=== PATIENT | female | born 1955 | race Caucasian/White ===

== ENCOUNTER 2022-06-03 16:54 | Inpatient (IN) ==
[2022-06-03] MEDS ORDERED: Acetaminophen 325 MG TABLET PO PRN (19:51)
[2022-06-03] MEDS ORDERED: *HR* HYDROcodone/Acet 5/325 mg TABLET PO PRN (19:51)
[2022-06-03] MEDS ORDERED: Melatonin 3 MG TABLET PO PRN (19:51)
[2022-06-03] MEDS ORDERED: *HR* Promethazine 25 MG/ML VIAL IM PRN (19:51)
[2022-06-03] MEDS ORDERED: Naloxone 0.4 MG/ML INJ IVP PRN (19:51)
[2022-06-03] MEDS ORDERED: Ondansetron 4 MG/2 ML VIAL IVP PRN (19:51)
[2022-06-03] MEDS ORDERED: Ringers Solution, Lactated 1,000 ML IVC SCH (20:00)
[2022-06-03] MEDS ORDERED: *HR* LORazepam 0.5 MG TABLET PO PRN (20:00)
[2022-06-03] MEDS ORDERED: Azithromycin 500 MG in 0.9 % Sodium Chloride 250 ML IVPB SCH (21:00)
[2022-06-03] MEDS: 0.9 % Sodium Chloride 1,000 ML IVC SCH (22:37)
[2022-06-03] MEDS: QUEtiapine Fumarate 25 MG TABLET PO SCH (22:43)
[2022-06-03] MEDS: Piperacillin/Tazobactam 3.375 GM in 0.9 % Sodium Chloride Mini Bag 100 ML IVPB SCH (23:58)
[2022-06-04] MEDS ORDERED: Potassium Phosphate 44 MEQ in 0.9 % Sodium Chloride 250 ML IVPB ONE (01:15)
[2022-06-04] MEDS ORDERED: Ipratropium/Albuterol Neb 3 ML IH PRN (01:25)
[2022-06-04] MEDS: 0.9 % Sodium Chloride 1,000 ML IVC SCH ×2 (05:53→19:49)
[2022-06-04 06:33] LABS: Basophils % 0.1 %; Hematocrit 27.3 % (35.3-44.9); Hemoglobin 8.5 g/dL (11.5-15.4); Immature Granulocytes % 0.8 % (0-4); Lymphocytes # 1.6 K/mcL (0.6-4.6); Lymphocytes % 8.5 %; Mean Corpuscular HGB Conc 31.1 g/dL (31.6-35.5); Mean Corpuscular Hemoglobin 26.5 pg (28.0-33.3); Mean Platelet Volume 9.2 fL (9.4-12.4); Monocytes # 0.8 K/mcL (0.0-1.3); Monocytes % 4.1 %; Neutrophils # 16.4 K/mcL (1.6-8.9); Platelet Count 565 K/mcL (140-400); Red Blood Count 3.21 M/mcL (3.82-4.97); Red Cell Distribution Width 13.9 % (11.5-14.5); Segmented Neutrophils % 86.5 %
[2022-06-04 06:40] LABS: Prothrombin Time 11.4 Seconds (9.4-12.1)
[2022-06-04 06:46] LABS: % Iron Saturation 29 % (15-50); Iron 62 mcg/dL (50-170); Transferrin 154 mg/dL (203-362)
[2022-06-04 06:47] LABS: Albumin 2.8 g/dL (3.5-5.7); Albumin/Globulin Ratio 0.9 (1.1-2.2); Bilirubin,Total 0.2 mg/dL (0.3-1.0); Calcium 8.7 mg/dL (8.6-10.3); Globulin 3.2 g/dL (2.4-3.5); Magnesium 2.1 mg/dL (1.6-2.6); Phosphorous 4.8 mg/dL (2.7-4.5)
[2022-06-04 07:11] LABS: Folate 4.7 ng/mL (3.0-16.0)
[2022-06-04] MEDS: Budesonide/Formoterol 160/4.5 1 PUFF INH IH SCH ×2 (07:32→20:23)
[2022-06-04] MEDS: PARoxetine 10 MG TABLET PO SCH (09:55)
[2022-06-04] MEDS: Piperacillin/Tazobactam 3.375 GM in 0.9 % Sodium Chloride Mini Bag 100 ML IVPB SCH ×2 (09:56→19:49)
[2022-06-04] MEDS: Lurasidone 20 MG TABLET PO SCH (10:00)
[2022-06-04] MEDS ORDERED: GuaiFENesin Liq 200 MG/10 ML UDC PO PRN (12:13)
[2022-06-04] MEDS ORDERED: Albuterol 2.5 MG/3 ML NEBULIZER IH PRN (12:32)
[2022-06-04] MEDS ORDERED: Ondansetron 4 MG/2 ML VIAL IVP PRN (12:32)
[2022-06-04] MEDS ORDERED: *HR* FentaNYL (PF) 100 MCG/2 ML VIAL IVP PRN (12:32)
[2022-06-04] MEDS ORDERED: Tuberculin Skin Test (PPD) 5 UNIT/0.1 ML VIAL ID ONE (12:33)
[2022-06-04] MEDS ORDERED: *HR* Propofol 200 MG/20 ML VIAL IVP ONE (13:15)
[2022-06-04] MEDS ORDERED: *HR* Rocuronium Bromide 50 MG/5 ML VIAL ONE (13:16)
[2022-06-04] MEDS ORDERED: Lidocaine -MPF 2% 5 ML VIAL ONE (13:16)
[2022-06-04] MEDS ORDERED: *HR* Succinylcholine 200 MG/10 ML VIAL IVP ONE (13:16)
[2022-06-04] MEDS ORDERED: Ondansetron 4 MG/2 ML VIAL ONE (13:16)
[2022-06-04] MEDS: *HR* Heparin 5,000 UNIT/ML VIAL SQ SCH ×2 (14:00→19:49)
[2022-06-04] MEDS ORDERED: *HR* EPINEPHrine 1 MG/10 ML SYRINGE INTRATRACH PRN (15:24)
[2022-06-04] MEDS: QUEtiapine Fumarate 25 MG TABLET PO SCH (19:48)
[2022-06-05] MEDS ORDERED: Piperacillin/Tazobactam 3.375 GM VIAL ONE (00:46)
[2022-06-05] MEDS: Piperacillin/Tazobactam 3.375 GM in 0.9 % Sodium Chloride Mini Bag 100 ML IVPB SCH ×2 (01:08→10:02)
[2022-06-05 04:10] LABS: Basophils % 0.1 %; Hematocrit 23.2 % (35.3-44.9); Hemoglobin 7.4 g/dL (11.5-15.4); Immature Granulocytes % 1.4 % (0-4); Lymphocytes # 1.1 K/mcL (0.6-4.6); Lymphocytes % 11.1 %; Mean Corpuscular HGB Conc 31.9 g/dL (31.6-35.5); Mean Corpuscular Hemoglobin 27.4 pg (28.0-33.3); Mean Corpuscular Volume 85.9 fL (83.0-100.0); Mean Platelet Volume 9.1 fL (9.4-12.4); Monocytes # 0.4 K/mcL (0.0-1.3); Monocytes % 4.1 %; Neutrophils # 8.5 K/mcL (1.6-8.9); Platelet Count 502 K/mcL (140-400); Red Cell Distribution Width 14.4 % (11.5-14.5); Segmented Neutrophils % 83.3 %; White Blood Count 10.2 K/mcL (4.3-11.1)
[2022-06-05 04:32] LABS: Albumin 2.6 g/dL (3.5-5.7); Bilirubin,Total 0.2 mg/dL (0.3-1.0); Globulin 2.7 g/dL (2.4-3.5); Potassium 3.7 mEq/L (3.5-5.1); Total Protein 5.3 g/dL (6.4-8.9)
[2022-06-05] MEDS: 0.9 % Sodium Chloride 1,000 ML IVC SCH ×3 (04:49→18:43)
[2022-06-05] MEDS: *HR* Heparin 5,000 UNIT/ML VIAL SQ SCH ×3 (04:50→21:14)
[2022-06-05] MEDS: Lurasidone 20 MG TABLET PO SCH (09:45)
[2022-06-05] MEDS: PARoxetine 10 MG TABLET PO SCH (09:45)
[2022-06-05] MEDS: Budesonide/Formoterol 160/4.5 1 PUFF INH IH SCH ×2 (10:12→21:56)
[2022-06-05] MEDS ORDERED: Piperacillin/Tazobactam 3.375 GM in 0.9 % Sodium Chloride Mini Bag 100 ML IVPB SCH (14:00)
[2022-06-05] MEDS: *HR* LORazepam 1 MG TABLET PO SCH ×2 (16:56→21:15)
[2022-06-05] MEDS ORDERED: NON-FORMULARY MEDICATION 1 EACH EACH (Atorvastatin Calcium [Lipitor] 20 MG Tablet) PO SCH (21:00)
[2022-06-05] MEDS: QUEtiapine Fumarate 25 MG TABLET PO SCH (21:18)
[2022-06-06] MEDS: Piperacillin/Tazobactam 3.375 GM in 0.9 % Sodium Chloride Mini Bag 100 ML IVPB SCH ×2 (00:37→09:33)
[2022-06-06] MEDS: 0.9 % Sodium Chloride 1,000 ML IVC SCH ×2 (01:14→02:13)
[2022-06-06 04:29] VITALS: BP 127/56; PULSE 63; TEMP 98.2
[2022-06-06] MEDS: *HR* Heparin 5,000 UNIT/ML VIAL SQ SCH (05:38)
[2022-06-06] MEDS: *HR* LORazepam 1 MG TABLET PO SCH (09:32)
[2022-06-06] MEDS: Lurasidone 20 MG TABLET PO SCH (09:33)
[2022-06-06] MEDS: PARoxetine 10 MG TABLET PO SCH (09:40)
[2022-06-06] MEDS: Budesonide/Formoterol 160/4.5 1 PUFF INH IH SCH (09:54)
[2022-06-06 11:40] VITALS: O2SAT 100
[2022-06-07 23:20] LABS: A.galactomannan Ag Index 0.08
== END 2022-06-06 13:08 | disposition home or self-care (01) | DRG 177 ==
LOC: SUATTDRO 18:32 → 3NENU 18:32
PROVIDERS: ADMIT Internal Medicine; ATTEND Internal Medicine

== ENCOUNTER 2022-07-01 10:46 | Inpatient (IN) ==
[2022-07-01] MEDS ORDERED: Ondansetron ODT 4 MG TAB.RAPDIS SL PRN (18:04)
[2022-07-01] MEDS ORDERED: Acetaminophen 325 MG TABLET PO PRN (18:04)
[2022-07-01] MEDS ORDERED: Naloxone 0.4 MG/ML INJ IVP PRN (18:04)
[2022-07-01] MEDS: 0.9 % Sodium Chloride 1,000 ML IVC SCH (19:53)
[2022-07-02 06:26] LABS: Basophils % 0.1 %; Hematocrit 15.1 % (35.3-44.9); Mean Corpuscular Volume 83.9 fL (83.0-100.0); Nucleated Red Blood Cells 0.3 /100 WBC (0); Red Cell Distribution Width 15.2 % (11.5-14.5)
[2022-07-02 06:28] LABS: Eosinophils # 0.1 K/mcL (0.0-0.6); Eosinophils % 0.5 %; Immature Granulocytes % 1.3 % (0-4); Lymphocytes % 20.2 %; Mean Corpuscular HGB Conc 31.1 g/dL (31.6-35.5); Mean Corpuscular Hemoglobin 26.1 pg (28.0-33.3); Mean Platelet Volume 9.7 fL (9.4-12.4); Monocytes # 1.1 K/mcL (0.0-1.3); Monocytes % 7.6 %; Neutrophils # 10.4 K/mcL (1.6-8.9); Platelet Count 313 K/mcL (140-400); Segmented Neutrophils % 70.3 %; White Blood Count 14.8 K/mcL (4.3-11.1)
[2022-07-02 06:32] LABS: Hemoglobin 4.7 g/dL (11.5-15.4)
[2022-07-02 06:36] LABS: INR 1.2; Prothrombin Time 12.9 Seconds (9.4-12.1)
[2022-07-02 06:37] LABS: Activated Partial Thrombo Time 25.6 Seconds (26.0-36.0)
[2022-07-02 06:44] LABS: Calcium 9.2 mg/dL (8.6-10.3); Potassium 3.2 mEq/L (3.5-5.1)
[2022-07-02] MEDS ORDERED: 0.9 % Sodium Chloride 250 ML IVC SCH (07:00)
[2022-07-02 07:58] LABS: Hematocrit 14.6 % (35.3-44.9); Hemoglobin 4.7 g/dL (11.5-15.4)
[2022-07-02] MEDS ORDERED: 0.9 % Sodium Chloride 500 ML ONE ×2 (08:12→11:55)
[2022-07-02] MEDS ORDERED: Potassium Effervescent 25 MEQ TABLET.EFF PO ONE (09:24)
[2022-07-02] MEDS ORDERED: Morphine Sulfate 2 MG/ML SYRINGE IVP PRN (12:25)
[2022-07-02] MEDS: Ipratropium/Albuterol Neb 3 ML IH SCH ×3 (13:10→20:44)
[2022-07-02 15:24] LABS: Hematocrit 20.8 % (35.3-44.9)
[2022-07-02 15:25] LABS: Hemoglobin 6.9 g/dL (11.5-15.4)
[2022-07-02 15:44] LABS: % Iron Saturation 45 % (15-50); Iron 135 mcg/dL (50-170); Transferrin 216 mg/dL (203-362)
[2022-07-02 16:02] LABS: Ferritin 60 ng/mL (10-120)
[2022-07-02 16:03] LABS: Hematocrit 22.2 % (35.3-44.9); Hemoglobin 7.3 g/dL (11.5-15.4)
[2022-07-02 16:07] LABS: Folate 2.4 ng/mL (3.0-16.0)
[2022-07-02] MEDS ORDERED: *HR* FentaNYL (PF) 100 MCG/2 ML VIAL ONE ×3 (16:12→20:00)
[2022-07-02] MEDS ORDERED: *HR* Propofol 200 MG/20 ML VIAL IVP ONE (16:12)
[2022-07-02] MEDS ORDERED: Lidocaine -MPF 2% 2 ML VIAL ONE (16:12)
[2022-07-02] MEDS ORDERED: Mannitol 20% 0 GM/0 ML IV.SOLN IVC ONE (16:23)
[2022-07-02] MEDS ORDERED: Ipratropium/Albuterol Neb 3 ML IH ONE (16:38)
[2022-07-02] MEDS ORDERED: Acetylcysteine 10% 2 ML INHSOL IH ONE (16:40)
[2022-07-02 16:53] LABS: Basophils % 0.1 %; Eosinophils # 0.1 K/mcL (0.0-0.6); Eosinophils % 0.5 %; Immature Granulocytes % 1.5 % (0-4); Lymphocytes # 2.7 K/mcL (0.6-4.6); Lymphocytes % 18.7 %; Mean Corpuscular HGB Conc 32.4 g/dL (31.6-35.5); Mean Corpuscular Hemoglobin 27.5 pg (28.0-33.3); Mean Platelet Volume 9.9 fL (9.4-12.4); Monocytes # 1.2 K/mcL (0.0-1.3); Monocytes % 8.3 %; Neutrophils # 10.4 K/mcL (1.6-8.9); Nucleated Red Blood Cells 0.2 /100 WBC (0); Platelet Count 273 K/mcL (140-400); Red Blood Count 2.47 M/mcL (3.82-4.97); Red Cell Distribution Width 13.9 % (11.5-14.5); Segmented Neutrophils % 70.9 %; White Blood Count 14.6 K/mcL (4.3-11.1)
[2022-07-02] MEDS ORDERED: CeFAZolin Syr 2,000MG/20 ML 2,000 MG/20 ML SYRINGE IVPB ONE (17:00)
[2022-07-02] MEDS ORDERED: Albuterol 2.5 MG/3 ML NEBULIZER IH ONE (17:09)
[2022-07-02] MEDS ORDERED: Sugammadex Sodium 200 MG/2 ML VIAL IV ONE (19:34)
[2022-07-02] MEDS: carvediloL 6.25 MG TABLET PO SCH (22:26)
[2022-07-02] MEDS: 0.9 % Sodium Chloride 1,000 ML IVC SCH (22:27)
[2022-07-03] MEDS: Ipratropium/Albuterol Neb 3 ML IH SCH ×6 (00:19→19:12)
[2022-07-03] MEDS ORDERED: *HR* Labetalol 20 MG/4 ML SYRINGE IVP PRN (00:35)
[2022-07-03 01:49] LABS: Basophils % 0.1 %; Eosinophils % 0.3 %; Hematocrit 22.8 % (35.3-44.9); Hemoglobin 7.5 g/dL (11.5-15.4); Immature Granulocytes % 1.5 % (0-4); Lymphocytes % 14.3 %; Mean Corpuscular HGB Conc 32.9 g/dL (31.6-35.5); Mean Corpuscular Volume 85.1 fL (83.0-100.0); Mean Platelet Volume 9.9 fL (9.4-12.4); Monocytes # 1.1 K/mcL (0.0-1.3); Neutrophils # 10.5 K/mcL (1.6-8.9); Nucleated Red Blood Cells 0.2 /100 WBC (0); Platelet Count 231 K/mcL (140-400); Red Blood Count 2.68 M/mcL (3.82-4.97); Segmented Neutrophils % 75.8 %; White Blood Count 13.8 K/mcL (4.3-11.1)
[2022-07-03 02:09] LABS: INR 1.1; Prothrombin Time 12.3 Seconds (9.4-12.1)
[2022-07-03 02:19] LABS: Alanine Aminotransferase 21 Units/L (7-52); Albumin/Globulin Ratio 1.4 (1.1-2.2); Alkaline Phosphatase 225 Units/L (34-104); Aspartate Amino Transferase 80 Units/L (13-39); BUN/Creatinine Ratio 30 (6-26); Bilirubin,Total 0.3 mg/dL (0.3-1.0); Blood Urea Nitrogen 32 mg/dL (8-23); Calcium 8.9 mg/dL (8.6-10.3); Carbon Dioxide 29 mEq/L (23-29); Chloride 106 mEq/L (98-107); Chol/HDL Ratio 2.4 (0-4.9); Cholesterol 110 mg/dL (< 200); Globulin 2.2 g/dL (2.4-3.5); Glucose 99 mg/dL (70-105); HDL Cholesterol 46 mg/dL (40-59); LDL Cholesterol,Calculated 0 mg/dL (< 100); Osmolality,Calculated 299 (280-300); Potassium 4.1 mEq/L (3.5-5.1); Sodium 141 mEq/L (136-145); Total Protein 5.2 g/dL (6.4-8.9); Triglycerides 319 mg/dL (< 150); Troponin I < 0.03 ng/mL (< 0.04)
[2022-07-03 02:33] LABS: Estimated Average Glucose 97 mg/dl
[2022-07-03] MEDS: Folic Acid 1 MG TABLET PO SCH (07:53)
[2022-07-03] MEDS: carvediloL 6.25 MG TABLET PO SCH ×2 (07:53→16:53)
[2022-07-03] MEDS ORDERED: Bacitracin OINT PKT TP SCH (21:00)
[2022-07-04] MEDS: Ipratropium/Albuterol Neb 3 ML IH SCH ×4 (00:10→11:20)
[2022-07-04 05:24] LABS: VBG Ionized Calcium 1.22 mmol/L (1.15-1.35)
[2022-07-04 05:24] LABS: Basophils % 0.1 %; Eosinophils # 0.1 K/mcL (0.0-0.6); Eosinophils % 0.9 %; Hematocrit 22.4 % (35.3-44.9); Hemoglobin 7.2 g/dL (11.5-15.4); Immature Granulocytes % 1.1 % (0-4); Lymphocytes # 1.8 K/mcL (0.6-4.6); Lymphocytes % 12.8 %; Mean Corpuscular HGB Conc 32.1 g/dL (31.6-35.5); Mean Corpuscular Hemoglobin 27.6 pg (28.0-33.3); Mean Corpuscular Volume 85.8 fL (83.0-100.0); Mean Platelet Volume 9.9 fL (9.4-12.4); Monocytes % 7.4 %; Neutrophils # 10.9 K/mcL (1.6-8.9); Platelet Count 214 K/mcL (140-400); Red Blood Count 2.61 M/mcL (3.82-4.97); Red Cell Distribution Width 14.4 % (11.5-14.5); Segmented Neutrophils % 77.7 %
[2022-07-04 05:41] LABS: BUN/Creatinine Ratio 24 (6-26); Blood Urea Nitrogen 16 mg/dL (8-23); Calcium 8.7 mg/dL (8.6-10.3); Carbon Dioxide 31 mEq/L (23-29); Chloride 104 mEq/L (98-107); Glucose 102 mg/dL (70-105); Magnesium 1.8 mg/dL (1.6-2.6); Osmolality,Calculated 291 (280-300); Phosphorous 1.9 mg/dL (2.7-4.5); Potassium 3.3 mEq/L (3.5-5.1); Sodium 140 mEq/L (136-145)
[2022-07-04] MEDS: carvediloL 6.25 MG TABLET PO SCH (08:04)
[2022-07-04] MEDS: Folic Acid 1 MG TABLET PO SCH (08:04)
[2022-07-04 09:11] VITALS: O2SAT 95
[2022-07-04] MEDS ORDERED: Acetaminophen 325 MG TABLET PO PRN (15:01)
[2022-07-04] MEDS ORDERED: Naloxone 0.4 MG/ML INJ IVP PRN (15:01)
[2022-07-04 15:38] VITALS: BP 137/65; PULSE 85
[2022-07-04 15:39] VITALS: TEMP 98.7
[2022-07-04] MEDS ORDERED: Ipratropium/Albuterol Neb 3 ML IH SCH (16:00)
[2022-07-04] MEDS ORDERED: carvediloL 6.25 MG TABLET PO SCH (17:00)
[2022-07-04] MEDS ORDERED: NON-FORMULARY MEDICATION 1 EACH EACH (Atorvastatin Calcium [Lipitor] 20 MG Tablet) PO SCH (21:00)
[2022-07-05] MEDS ORDERED: PARoxetine 10 MG TABLET PO SCH (09:00)
[2022-07-05] MEDS ORDERED: amLODIPine 5 MG TABLET PO SCH (09:00)
[2022-07-05] MEDS ORDERED: Budesonide/Formoterol 80/4.5 1 PUFF INH IH SCH (10:00)
== END 2022-07-04 17:15 | disposition home health service (06) | DRG 25 ==
LOC: 4WAOSI → ICNU 07-02 16:36
PROVIDERS: ADMIT Student in an Organized Health Care Education/Training Program; ATTEND Student in an Organized Health Care Education/Training Program

== ENCOUNTER 2022-07-11 19:54 | Inpatient (IN) ==
[2022-07-11] MEDS ORDERED: 0.9 % Sodium Chloride 1,000 ML IVC ONE (21:07)
[2022-07-11] MEDS ORDERED: Iopamidol - 370 500 ML MLS IVP ONE (21:07)
[2022-07-11 21:24] LABS: Basophils % 0.1 %; Eosinophils % 0.1 %; Hematocrit 19.9 % (35.3-44.9); Hemoglobin 6.1 g/dL (11.5-15.4); Immature Granulocytes % 1.1 % (0-4); Lymphocytes # 2.8 K/mcL (0.6-4.6); Lymphocytes % 10.1 %; Mean Corpuscular HGB Conc 30.7 g/dL (31.6-35.5); Mean Corpuscular Hemoglobin 27.2 pg (28.0-33.3); Mean Corpuscular Volume 88.8 fL (83.0-100.0); Mean Platelet Volume 10.7 fL (9.4-12.4); Monocytes # 1.7 K/mcL (0.0-1.3); Monocytes % 6.1 %; Neutrophils # 22.9 K/mcL (1.6-8.9); Nucleated Red Blood Cells 0.1 /100 WBC (0); Platelet Count 439 K/mcL (140-400); Red Blood Count 2.24 M/mcL (3.82-4.97); Red Cell Distribution Width 14.8 % (11.5-14.5); Segmented Neutrophils % 82.5 %; White Blood Count 27.8 K/mcL (4.3-11.1)
[2022-07-11 21:30] LABS: INR 1.1; Prothrombin Time 12.8 Seconds (9.4-12.1)
[2022-07-11 21:32] LABS: Activated Partial Thrombo Time 28.5 Seconds (26.0-36.0)
[2022-07-11] MEDS ORDERED: cefTRIAXone 1,000 MG in 0.9 % Sodium Chloride 10 ML IVP ONE (21:32)
[2022-07-11 21:59] LABS: Alanine Aminotransferase 5 Units/L (7-52); Albumin 3.3 g/dL (3.5-5.7); Albumin/Globulin Ratio 1.1 (1.1-2.2); Alkaline Phosphatase 124 Units/L (34-104); Aspartate Amino Transferase 10 Units/L (13-39); BUN/Creatinine Ratio 18 (6-26); Bilirubin,Direct 0.1 mg/dL (0.0-0.2); Bilirubin,Indirect 0.3 mg/dL (0.0-1.0); Bilirubin,Total 0.4 mg/dL (0.3-1.0); Blood Urea Nitrogen 23 mg/dL (8-23); Calcium 10.9 mg/dL (8.6-10.3); Carbon Dioxide 29 mEq/L (23-29); Chloride 100 mEq/L (98-107); Ethanol < 10 mg/dL (Less than 10); Globulin 2.9 g/dL (2.4-3.5); Glucose 107 mg/dL (70-105); Osmolality,Calculated 292 (280-300); Potassium 3.1 mEq/L (3.5-5.1); Sodium 139 mEq/L (136-145); Total Protein 6.2 g/dL (6.4-8.9); Troponin I 0.06 ng/mL (< 0.04)
[2022-07-11] MEDS ORDERED: 0.9 % Sodium Chloride 1,000 ML ONE (22:42)
[2022-07-11 23:32] LABS: Adenovirus Not Detected (Not Detect); Bordetella Pertussis Not Detected (Not Detect); Chlamydophila pneumoniae Not Detected (Not Detect); Coronavirus 229E Not Detected (Not Detect); Coronavirus HKU1 Not Detected (Not Detect); Coronavirus NL63 Not Detected (Not Detect); Coronavirus OC43 Not Detected (Not Detect); Human Metapneumovirus Not Detected (Not Detect); Human Rhinovirus/Enterovirus Not Detected (Not Detect); Influenza A Subtype 2009 H1 Not Detected (Not Detect); Influenza B Not Detected (Not Detect); Mycoplasma pneumoniae Not Detected (Not Detect); Parainfluenza Virus 1 Not Detected (Not Detect); Parainfluenza Virus 2 Not Detected (Not Detect); Parainfluenza Virus 3 Not Detected (Not Detect); Parainfluenza Virus 4 Not Detected (Not Detect); Respiratory Syncytial Virus Not Detected (Not Detect); SARS-CoV-2 Not Detected (Not Detect)
[2022-07-12] MEDS ORDERED: Gadolinium Contrast Agent (WT Based) IV PRN (00:24)
[2022-07-12] MEDS ORDERED: Piperacillin/Tazobactam 3.375 GM in 0.9 % Sodium Chloride Mini Bag 100 ML IVPB ONE (00:24)
[2022-07-12 00:25] LABS: Amphetamine Screen,Urine Negative ng/mL (Cutoff=1000); Barbiturate Screen,Urine Negative ng/mL (Cutoff=200); Benzodiazepines Screen,Urine Negative ng/mL (Cutoff=200); Cannabinoid Screen,Urine Negative ng/mL (Cutoff = 50); Cocaine Screen,Urine Negative ng/mL (Cutoff= 300); Opiate Screen,Urine Negative ng/mL (Cutoff=300); Phencyclidine Screen,Urine Negative ng/mL (Cutoff=25)
[2022-07-12] MEDS ORDERED: 0.9 % Sodium Chloride 250 ML ONE (00:34)
[2022-07-12 00:37] LABS: Bilirubin,Urine Negative (Negative); Blood,Urine Negative (Negative); Clarity,Urine Clear (Clear); Color,Urine Light-Yellow (Yellow); Glucose,Urine (UA) Normal (Normal); Hyaline Casts,Urine Few per lpf (None Seen); Ketones,Urine Negative (Negative); Leukocyte Esterase,Urine Trace (Negative); Mucus,Urine Few per lpf (None-Few); Nitrite,Urine Negative (Negative); Protein,Urine 30 mg/dL (Neg-Trace); RBC,Urine 0-3 per hpf (0-3); Renal Epithelial Cells,Urine Few per hpf (None-Few); Specific Gravity,Urine > 1.030 (1.010-1.025); Squamous Epithelial Cell,Urine Few per hpf (None-Few); Transitional Epi Cells,Urine Few per hpf (None-Few); Urobilinogen,Urine Normal (Normal)
[2022-07-12] MEDS ORDERED: Morphine Sulfate 2 MG/ML SYRINGE IVP ONE (01:42)
[2022-07-12] MEDS ORDERED: Pantoprazole 40 MG VIAL IVP ONE (02:11)
[2022-07-12] MEDS ORDERED: *HR* FentaNYL (PF) 100 MCG/2 ML VIAL IVP ONE (02:59)
[2022-07-12] MEDS ORDERED: cefTRIAXone 1,000 MG in Water for inj. (sterile) 10 ML IVP ONE (04:03)
[2022-07-12] MEDS ORDERED: Melatonin 3 MG TABLET PO PRN (04:47)
[2022-07-12] MEDS ORDERED: Naloxone 0.4 MG/ML INJ IVP PRN (04:47)
[2022-07-12] MEDS ORDERED: Mag Hydrox/Al Hydrox/Simeth 30 ML UDC PO PRN (04:47)
[2022-07-12] MEDS ORDERED: Ondansetron 4 MG/2 ML VIAL IVP PRN (04:47)
[2022-07-12] MEDS ORDERED: Ipratropium/Albuterol Neb 3 ML IH PRN (04:50)
[2022-07-12] MEDS ORDERED: *HR* LORazepam 2 MG/ML VIAL IVP PRN (04:52)
[2022-07-12] MEDS ORDERED: Morphine Sulfate 2 MG/ML SYRINGE IVP PRN (04:52)
[2022-07-12] MEDS ORDERED: *HR* HYDROmorphone 2 MG/ML SYRINGE IVP PRN (04:54)
[2022-07-12] MEDS ORDERED: Nystatin SUSP 5 ML UD.LIQ PO PRN (04:55)
[2022-07-12] MEDS ORDERED: Ringers Solution, Lactated 1,000 ML IVC SCH (05:00)
[2022-07-12] MEDS ORDERED: Cefepime HCl 2,000 MG in 0.9 % Sodium Chloride 10 ML IVP SCH (06:00)
[2022-07-12] MEDS ORDERED: Haloperidol Lactate 5 MG/ML VIAL IVP PRN (09:33)
[2022-07-12] MEDS: *HR* FentaNYL PATCH 50 MCG PATCH TD SCH (10:25)
[2022-07-12] MEDS: Atropine Sulfate 1% 40 DROP/2 ML BOTTLE SL PRN (10:26)
[2022-07-12] MEDS: Morphine Sulfate 2 MG/ML SYRINGE IVP PRN ×6 (11:45→22:06)
[2022-07-12] MEDS: Pantoprazole 40 MG VIAL IVP SCH (13:43)
[2022-07-13] MEDS: Pantoprazole 40 MG VIAL IVP SCH ×2 (00:47→15:15)
[2022-07-13] MEDS: Morphine Sulfate 2 MG/ML SYRINGE IVP PRN ×8 (00:47→22:35)
[2022-07-13] MEDS: Atropine Sulfate 1% 40 DROP/2 ML BOTTLE SL PRN ×3 (03:05→21:57)
[2022-07-13] MEDS: *HR* LORazepam 2 MG/ML VIAL IVP PRN (06:04)
[2022-07-13] MEDS ORDERED: cefTRIAXone 2,000 MG in 0.9 % Sodium Chloride 20 ML IVP SCH (09:00)
[2022-07-13] MEDS ORDERED: Scopolamine Patch 1.5 MG PATCH.TD72 TD SCH (10:00)
[2022-07-14] MEDS: Pantoprazole 40 MG VIAL IVP SCH ×2 (01:14→13:07)
[2022-07-14] MEDS: Morphine Sulfate 2 MG/ML SYRINGE IVP PRN ×9 (01:15→23:38)
[2022-07-14] MEDS: Atropine Sulfate 1% 40 DROP/2 ML BOTTLE SL PRN ×3 (02:29→19:59)
[2022-07-14] MEDS ORDERED: Glycopyrrolate 0.2 MG/ML VIAL IVP PRN (09:35)
[2022-07-14] MEDS ORDERED: Morphine Sulfate Oral CONC 10 MG/0.5 ML ORAL.SYG SL PRN (09:40)
[2022-07-14] MEDS ORDERED: Acetaminophen IV 500 MG/50 ML BAG IVPB ONE (10:23)
[2022-07-14] MEDS: *HR* LORazepam 2 MG/ML VIAL IVP PRN ×3 (13:07→22:35)
[2022-07-14 13:37] VITALS: BP 129/80; PULSE 157; TEMP 100.4; O2SAT 38
[2022-07-15] MEDS: *HR* LORazepam 2 MG/ML VIAL IVP PRN ×2 (02:19→06:35)
[2022-07-15] MEDS: Pantoprazole 40 MG VIAL IVP SCH (02:19)
[2022-07-15] MEDS: Morphine Sulfate 2 MG/ML SYRINGE IVP PRN (03:28)
[2022-07-15] MEDS: *HR* FentaNYL PATCH 50 MCG PATCH TD SCH (10:30)
== END 2022-07-15 16:33 | disposition expired | DRG 871 ==
LOC: EMEROOARM 19:54 → SUATTDRO 07-12 05:33 → 2ANU 07-12 05:33
PROVIDERS: ADMIT Student in an Organized Health Care Education/Training Program; ATTEND Internal Medicine